=== PATIENT | female | born 1990 | race Caucasian/White ===

== ENCOUNTER 2018-01-14 06:59 | Outpatient (CLI) | payer SELFPAY | END 2018-01-14 07:00 | disposition critical access hospital (66) | LOC: EMS 06:59 | PROVIDERS: ATTEND Surgery | DX: F41.0 Panic disorder [episodic paroxysmal anxiety] (principal) | CPT/HCPCS: A0425; A0429 ==

== ENCOUNTER 2018-01-14 07:16 | Emergency (ER) | payer SELFPAY ==
--- NOTE | 2018-01-14 07:38 | ED Physician Documentation ---
PD HPI MHE - Stated complaint Stated Complaint: PANIC ATTACK - Chief complaint Chief Complaint: General - History obtained from History obtained from: Patient, EMS - History of Present Illness Primary symptom: Anxiety Timing - onset: Last night Contributing factors: Sig other Similar symptoms before: Diagnosis (panic attack) Recently seen: Not recently seen - Additional information Additional information: 27 y/o female with a history of panic attacks [place]. She relates that she was on December 06 and her has taken up with his x- and left her. She is anxious. Review of Systems Constitutional: denies: Fever Eyes: denies: Decreased vision Ears: denies: Ear pain Nose: denies: Rhinorrhea / runny nose, Congestion Throat: denies: Sore throat Cardiac: denies: Chest pain / pressure, Palpitations Respiratory: reports: Cough. denies: Dyspnea GI: denies: Abdominal Pain, Nausea, Vomiting, Constipation, Diarrhea : denies: Dysuria, Frequency Skin: denies: Rash Musculoskeletal: denies: Neck pain, Back pain, Extremity pain Neurologic: denies: Generalized weakness, Focal weakness, Numbness Psychiatric: reports: Depressed, Anxiety. denies: Suicidal, Homicidal, Hallucinations PD PAST MEDICAL HISTORY - Present Medications Home Medications: Ambulatory Orders Medication Instructions Recorded Confirmed Azithromycin [Zithromax] 250 mg PO DAILY #6 tablet 01/14/18 Lorazepam [Ativan] 1 mg PO Q6HR PRN #20 tablet 01/14/18 - Allergies Allergies/Adverse Reactions: Allergies Allergy/AdvReac Type Severity Reaction Status Date / Time No Known Drug Allergies Allergy Verified 01/14/18 07:28 PD ED PE NORMAL - Vitals Vital signs reviewed: Yes (hypertensive ) - General General: Alert and oriented X 3, Well developed/nourished, Other - HEENT HEENT: Atraumatic, PERRL, EOMI, Moist mucous membranes, Other (The left TM is inflamed with rounding of the landmarks and pointing of the tip of the umbo. The right is clear. ) - Neck Neck: Supple, no meningeal sign, No bony TTP - Cardiac Cardiac: RRR, No murmur - Respiratory Respiratory: No respiratory distress, Clear bilaterally - Abdomen Abdomen: Soft, Non tender - Back Back: No CVA TTP, No spinal TTP - Derm Derm: Normal color, Warm and dry, No rash - Extremities Extremities: No deformity, No edema - Neuro Neuro: No motor deficit, No sensory deficit Eye Opening: Spontaneous Motor: Obeys Commands Verbal: Oriented GCS Score: 15 - Psych Psych: Other (The mood is anxious and tearful the affect is sad. ) Results - Vitals Vitals: Vital Signs - 24 hr 01/14/18 01/14/18 01/14/18 07:18 07:35 08:06 Temperature 36.9 C 98.4 C H Heart Rate 95 84 78 Respiratory 20 24 20 Rate Blood Pressure 134/101 H 130/86 H 135/94 H O2 Saturation 99 100 99 Oxygen O2 Source Room air - Labs Labs: Laboratory Tests 01/14/18 07:25 Urine Color LIGHT YELLOW Urine Clarity CLEAR Urine pH 6.5 Ur Specific Warren <=1.005 Urine Protein NEGATIVE Urine Glucose (UA) NEGATIVE Urine Ketones NEGATIVE Urine Occult Blood TRACE-INTA Urine Nitrite NEGATIVE Urine Bilirubin NEGATIVE Urine Urobilinogen 0.2 (NORMAL) Ur Leukocyte Esterase NEGATIVE Ur Microscopic Review NOT INDICATED Urine Culture Comments NOT INDICATED Urine HCG, Qual NEGATIVE PD MEDICAL DECISION MAKING - ED course Complexity details: reviewed results, re-evaluated patient, considered differential, d/w patient ED course: 27 y/o female with situational anxiety has excessive anxiety and is administered an acute does of ativan 1mg PO. She has a history of anxiety for the past 10 years and she has previously used xanax but does not have this now. She has not had to take this medication for some time. She has a psychiatrist she sees and a PMD. She is visiting here, plans to go back today and has support at home. She is not suicidal or homicidal and she is not interested in hospitalization. She has incidental OM and we will provide a script and wait and see instructions. She will need additional benzo and a script for ativan is provided . - Sepsis Event Vital Signs: Vital Signs - 24 hr 01/14/18 01/14/18 01/14/18 07:18 07:35 08:06 Temperature 36.9 C 98.4 C H Heart Rate 95 84 78 Respiratory 20 24 20 Rate Blood Pressure 134/101 H 130/86 H 135/94 H O2 Saturation 99 100 99 Oxygen O2 Source Room air Departure - Departure Disposition: 01 Home, Self Care Clinical Impression: Panic attack as reaction to stress Otitis media Qualifiers: Otitis media type: suppurative Chronicity: acute Laterality: left Recurrence: not specified as recurrent Spontaneous tympanic membrane rupture: without spontaneous rupture Qualified Code(s): H66.002 - Acute suppurative otitis media without spontaneous rupture of ear drum, left ear Condition: Stable Instructions: ED Stress React, ED Panic Attack, ED Ear Infec Wait See Abx Tx Ch Follow-Up: Your, doctor [Other] Prescriptions: Lorazepam [Ativan] 1 mg PO Q6HR PRN #20 tablet PRN Reason: Anxiety Azithromycin [Zithromax] 250 mg PO DAILY #6 tablet Discharge Date/Time: 01/14/18 09:21
[2018-01-14 07:45] LABS: BILIRUBIN,URINE NEGATIVE (NEGATIVE); GLUCOSE, URINE (UA) NEGATIVE (NEGATIVE); KETONES,URINE (UA) NEGATIVE (NEGATIVE); LEUKOCYTE ESTERASE, URINE NEGATIVE (NEGATIVE); NITRITE,URINE NEGATIVE (NEGATIVE); OCCULT BLOOD,URINE TRACE-INTA (NEGATIVE); PH,URINE 6.5 PH (5.0-7.5); PROTEIN,URINE NEGATIVE (NEGATIVE); UROBILINOGEN,URINE 0.2 (NORMAL) E.U./dL (NORMAL)
[2018-01-14 07:48] LABS: CLARITY,URINE CLEAR (CLEAR); HCG UR QUAL NEGATIVE
[2018-01-14] MEDS ORDERED: LORazepam 0.5 MG TABLET PO STA (08:00)
[2018-01-14 08:07] VITALS: BP 135/94
== END 2018-01-14 09:21 | disposition home or self-care (01) ==
LOC: ED 07:16
DX: F43.0 Acute stress reaction (principal); H66.002 Acute suppurative otitis media without spontaneous rupture of ear drum, left ear
CPT/HCPCS: 81003; 81025; 99283; A9270; 81001; 87086